=== PATIENT | female | born 1990 | race Caucasian/White ===

== ENCOUNTER 2017-03-02 20:59 | Emergency (ER) | payer OTHER ==
[2017-03-02 21:01] VITALS: BP 155/83; PULSE 96; RESP 16; TEMP 98.3; O2SAT 100
[2017-03-02] MEDS ORDERED: WARF-22 PO (23:36)
[2017-03-02] MEDS ORDERED: Metoprolol PO (23:36)
--- NOTE | 2017-03-02 23:40 | PD ---
HPI Chief Complaint: Burn Time Seen by Provider: 23:35 Travel History International Travel<30 days: No Contact w/Intl Traveler<30days: No Traveled to known affect area: No History of Present Illness HPI 26-year-old white female presents emergency department for evaluation of a burn to her left hand which occurred last . 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 He was removing a pot of soup which splashed up onto her left hand. The patient states that she developed redness, and blistering immediately. She cleansed the wound at work and placed a dressing on it. She has been using [id number] burn cream. 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 She is up-to- date with immunizations. She states the pain is only minimal. She denies any fever or chills. No drainage. No numbness or tingling. 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 [facility] Past Medical History Narrative Medical Endocarditis with aortic valve replacement Cardiovascular Problems: Yes (ENDOCARDITIS) Diminished Hearing: No Tetanus Vaccination: < 5 Years ?: Not Past Surgical History Cardiac Surgery: Yes Valve Replacement: Yes (AORTIC VALVE) Social History Alcohol Use: Yes (OCCASIONALLY) Tobacco Use: No Substance Use: No Allergies-Medications (Allergen,Severity, Reaction): Coded Allergies: Adderall (Verified Allergy, Intermediate, Hives, 03/02/17) Review of Systems Except as stated in HPI: all other systems reviewed are Neg Physical Exam Narrative GENERAL: This is a well-nourished, well-developed patient, in no apparent distress. SKIN: No rashes, ecchymoses or lesions. Warm and dry. HEAD: Atraumatic. Normocephalic. EYES: PERRL, EOMI, no discharge or injection. No scleral icterus. EARS: Clear NOSE: Nasal turbinates appear normal. THROAT: Mucosa pink and moist. Airway patent. NECK: Trachea midline. supple, moves head freely. LUNGS: Clear to auscultation. CV: Regular in rhythm. Murmur associated with mechanical valve heard best in the aortic region. ABDOMEN: Soft nontender. EXT: No clubbing cyanosis or edema. Patient has healing first and second degree burn to the dorsal surface of the left hand. There are no circumferential injuries to the fingers. She is able to move the fingers freely as well as her wrist and elbow. She has intact median/ulnar/radial nerves. The area first-degree burn is approximately 1%TBSA and approximately 1 % TBSA second-degree. There is no discharge. No warmth. Data Data Last Documented VS Vital Signs Date Time Temp Pulse Resp B/P Pulse Ox O2 Delivery O2 Flow Rate FiO2 03/02/17 21:01 98.3 96 16 155/83 100 Room Air Orders Silver Sulfadia 1% Crm (50 Gm) (Silvaden (03/02/17 23:45) MDM Medical Decision Making Medical Screen Exam Complete: Yes Emergency Medical Condition: Yes Medical Record Reviewed: Yes Differential Diagnosis Differential diagnoses: First-degree burn, second-degree burn, third-degree burn , cellulitis Narrative Course Patient has sustained a first and second-degree burn to the left hand. It is in the mid stages of healing. There is no signs of any secondary wound infection. The wound is cleansed and dressed with Silvadene here in the ER. She is up-to-date with immunizations. There are no circumferential injury. This is a 1-2% TBSA burn left hand Diagnosis Primary Impression: 1-2% TBSA burn left hand Patient Instructions: General Instructions Additional Instructions: Rest. Elevation. Daily wound care with soap, water, Silvadene. Anticipate wound healing in the next 2-3 weeks. During this period of healing keep the area covered at work. Follow-up with workman's comp in 1 week. Return to the ER if any problems. Med/Other Pt SpecificInfo: Prescription(s) given, Wound Care Disposition: 01 DISCHARGE HOME Condition: Stable Moncho Aguilar Mar 02, 2017 23:40
[2017-03-02] MEDS ORDERED: SILV1CRE20 TOPICAL (23:41)
[2017-03-02] MEDS ORDERED: SILVER SULFADIAZINE 1% CR 50 GM JAR TOPICAL ONE (23:45)
== END 2017-03-03 00:11 | disposition home or self-care (01) ==
LOC: NEPD 20:59
DX: T23.262A Burn of second degree of back of left hand, initial encounter (principal); T31.0 Burns involving less than 10% of body surface; X12.XXXA Contact with other hot fluids, initial encounter; Y93.G3 Activity, cooking and baking; Y92.511 Restaurant or cafe as the place of occurrence of the external cause; Y99.0 Civilian activity done for income or pay
CPT/HCPCS: 16020

== ENCOUNTER 2017-09-28 19:28 | Emergency (ER) | payer SELFPAY ==
[~2017-09-28 19:28] MED LIST: Metoprolol PO; SILV1CRE20 TOPICAL; WARF-22 PO
[2017-09-28 19:34] VITALS: BP 158/90; PULSE 82; RESP 18; TEMP 98; O2SAT 99
[2017-09-28] MEDS ORDERED: TETANUS/DIPHTHERIA TOXOID ADULT 0.5 ML VIAL IM ONE (20:00)
[2017-09-28] MEDS ORDERED: WARF-22 PO (20:31)
--- NOTE | 2017-09-28 20:36 | PD ---
HPI Chief Complaint: Head Injury Time Seen by Provider: 19:39 Travel History International Travel<30 days: No Contact w/Intl Traveler<30days: No Traveled to known affect area: No History of Present Illness HPI 26-year-old female presents to the emergency room for evaluation of head injury that occurred just prior to arrival. States she was throwing trash away in her dumpster and stood up quickly striking the back of her head against the dumpster door. No loss of consciousness. She had a headache shortly afterward but that has improved. No nausea or vomiting. She does have pain around the laceration. She has not taken anything for symptoms. Last tetanus vaccination was in seventh grade. Patient is on high doses of Coumadin after having heart surgery in January 2016. PFS Past Medical History Hx Anticoagulant Therapy: Yes Cardiovascular Problems: Yes Diminished Hearing: No Past Surgical History Cardiac Surgery: Yes Valve Replacement: Yes (AORTIC VALVE) Social History Alcohol Use: Yes (OCCASIONALLY) Tobacco Use: No Substance Use: No Allergies-Medications (Allergen,Severity, Reaction): Coded Allergies: amphetamine (Unverified Allergy, Intermediate, Hives, 03/17/17) dextroamphetamine (Unverified Allergy, Intermediate, Hives, 03/17/17) Reported Meds & Prescriptions Reported Meds & Active Scripts Active Reported Warfarin 10 Mg Tab 15 Mg PO DAILY [Metoprolol] 50 Mg PO BID Review of Systems Except as stated in HPI: all other systems reviewed are Neg Physical Exam Narrative GENERAL: Well-nourished, well-developed female no acute distress. Afebrile. Ambulatory. SKIN: Focused skin assessment warm/dry. HEAD: Normocephalic. EYES: No scleral icterus. No injection or drainage. NECK: Supple, trachea midline. No JVD or lymphadenopathy. CARDIOVASCULAR: Regular rate and rhythm without murmurs, gallops, or rubs. RESPIRATORY: Breath sounds equal bilaterally. No accessory muscle use. NEUROLOGICAL: Awake and alert. Cranial nerves II through XII intact. Motor and sensory grossly within normal limits. Five out of 5 muscle strength in all muscle groups. Normal speech. Data Data Last Documented VS Vital Signs Date Time Temp Pulse Resp B/P (MAP) Pulse Ox O2 Delivery O2 Flow Rate FiO2 09/28/17 19:34 98.0 82 18 158/90 (112) [address] Brain W/O Iv Contrast(Rout) (09/28/17 ) Ed Urine Pregnancytest Poc (09/28/17 19:51) Tetanus/Diphtheria Tox Adult (Tetanus/Di (09/28/17 20:00) MDM Medical Decision Making Medical Screen Exam Complete: Yes Emergency Medical Condition: Yes Medical Record Reviewed: Yes Differential Diagnosis Laceration, contusion, closed head injury, concussion Narrative Course 26-year-old female presents to the emergency room for evaluation of a laceration to the back of her head that occurred just prior to arrival. Patient was standing under a dumpster door when she sat up quickly and struck the back of her head on the door. No loss of consciousness. She had a headache afterward but that has improved. No focal neurological deficits. Because patient is on high doses of warfarin status post heart surgery 1.5 years ago, CT of the brain was ordered. There is a small well approximated, superficial abrasion/laceration on the back of the scalp. No indication for repair. Wound was cleaned and tetanus was updated. Patient signed out to nighttime provider pending CT results. Diagnosis Primary Impression: Laceration of head Qualified Codes: S01.01XA - Laceration without foreign body of scalp, initial encounter Referrals: Primary Care Physician Additional Instructions: Rest and drink plenty of fluids. Take ibuprofen with food as directed, as needed for pain. Apply ice to the affected area for 20 minutes at a time, as needed for pain and swelling. Follow-up with a primary care physician. Return to the emergency room for worsening symptoms. Disposition: 01 DISCHARGE HOME Condition: Stable Juani Branch Sep 28, 2017 20:36
--- NOTE | 2017-09-28 21:10 | RADRPT ---
EXAM DATE/TIME: 09/28/2017 20:54 [facility] COMPARISON: No previous studies available for comparison. INDICATIONS : Trauma; dumpster lid hit head; laceration, blood thinners. RADIATION DOSE: 56.35 CTDIvol (mGy) MEDICAL HISTORY : Cardiovascular disease. SURGICAL HISTORY : Cardiac valve replacement 2015. ENCOUNTER: Initial ACUITY: 1 day PAIN SCALE: 3/10 LOCATION: cranial TECHNIQUE: Multiple contiguous axial images were obtained of the head. Using automated exposure control and adj ustment of the mA and/or kV according to patient size, radiation dose was kept as low as reasonably a chievable to obtain optimal diagnostic quality images. DICOM format image data is available electro nically for review and comparison. FINDINGS: There is no evidence of acute cortical infarction, acute hemorrhage, mass effect or midline shift. Th ere is tiny hypodensity in the left frontal region nonspecific in appearance measuring 6 mm in diamet er. This could be further evaluated with MRI electively is clinically indicated. Posterior fossa stru ctures are unremarkable. Bone windows are unremarkable. CONCLUSION: 1. No evidence of acute intracranial pathology. No masses are identified. 2. Small hypodensity the vega-white junction left frontal region of uncertain etiology. MRI is recomm ended for further evaluation if clinically indicated. Yan Campuzano MD on September 28, 2017 at 21:07 Board Certified Radiologist. This report was verified electronically.
--- NOTE | 2017-09-28 21:26 | PD ---
Physical Exam Date Seen by Provider: Sep 28, 2017 Time Seen by Provider: 21:24 Narrative For full history and physical examination please see previous providers note. I assumed care of this patient change his shift, at that time a CT scan of the brain was pending. Data Data Last Documented VS Vital Signs Date Time Temp Pulse Resp B/P (MAP) Pulse Ox O2 Delivery O2 Flow Rate FiO2 09/28/17 19:34 98.0 82 18 158/90 (112) [address] Brain W/O Iv Contrast(Rout) (09/28/17 ) Ed Urine Pregnancytest Poc (09/28/17 19:51) Tetanus/Diphtheria Tox Adult (Tetanus/Di (09/28/17 20:00) Ed Discharge Order (09/28/17 21:26) [facility] Medical Record Reviewed: Yes Supervised Visit with ASHLEY: No Narrative Course Signed out to me at change of shift, please refer to previous providers notes for full H&P. CT shows no evidence of acute intracranial pathology. No masses are identified. There is a small hypodensity the veag-white junction left frontal region of uncertain etiology. MRI is recommended if indicated as outpatient. Discussed with radiologist, this is to be followed up electively if needed. Patient is encouraged to follow-up with her primary doctor for routine INR evaluation. She is encouraged to return to emergency department for any new or worsening symptoms. She was educated on wound care. Patient stable for discharge. Patient was given a copy of her CAT scan report to take to her primary doctor. Diagnosis Primary Impression: Laceration of head Qualified Codes: S01.01XA - Laceration without foreign body of scalp, initial encounter Referrals: Primary Care Physician Patient Instructions: General Instructions, Head Injury (ED), Laceration (ED) Additional Instruction: Rest and drink plenty of fluids. Take ibuprofen with food as directed, as needed for pain. Apply ice to the affected area for 20 minutes at a time, as needed for pain and swelling. Follow-up with a primary care physician. Return to the emergency room for worsening symptoms. Med/Other Pt SpecificInfo: No Change to Meds Disposition: 01 DISCHARGE HOME Condition: Stable DanielMariNataliemarianela RODRIGUEZ Sep 28, 2017 21:26
== END 2017-09-28 22:38 | disposition home or self-care (01) ==
LOC: NEPK 19:28
DX: S01.91XA Laceration without foreign body of unspecified part of head, initial encounter (principal); W22.8XXA Striking against or struck by other objects, initial encounter; I35.8 Other nonrheumatic aortic valve disorders; Z95.2 Presence of prosthetic heart valve; Z79.01 Long term (current) use of anticoagulants; Z23 Encounter for immunization
CPT/HCPCS: 70450; 84703; 90471; 90714